=== PATIENT | male | born 1965 | race Caucasian/White ===

== ENCOUNTER 2017-12-25 10:45 | Emergency (ER) | payer BC ==
[~2017-12-25] VITALS: Ht 172.7 cm; Wt 81.4 kg
[~2017-12-25 10:45] MED LIST: BUPR-79 PO; CEPH500C PO; TRAM-10 PO
[2017-12-25 11:00] VITALS: Ht 172.7 cm; Wt 81.4 kg
[2017-12-25] MEDS ORDERED: SODIUM CHLORIDE 0.9% 1000ML 1,000 ML IV STA (11:11)
[2017-12-25] MEDS ORDERED: ONDANSETRON INJ 2 MG/ML 2 ML VIAL IV STA (11:11)
[2017-12-25] MEDS ORDERED: FAMOTIDINE 20MG/5ML IV PUSH IV STA (11:11)
[2017-12-25] MEDS ORDERED: OPTIRAY 320 IV PRN (11:30)
--- NOTE | 2017-12-25 11:37 | DIAGNOSTIC IMAGING REPORT ---
CHEST ONE VIEW PORTABLE CLINICAL HISTORY: Pain, radiating to the abdomen. COMPARISON STUDY: No previous studies for comparison. FINDINGS: The cardiac and mediastinal contours are normal. There is no evidence of focal pulmonary consolidation. There is no evidence of failure. No pleural effusions are visualized.[ No free intraperitoneal air is visualized. IMPRESSION: No active disease in the chest. Electronically signed by: Raz No M.D. 12/25/2017 11:36 AM Dictated Date/Time: 12/25/2017 11:36 AM
[2017-12-25 11:40] LABS: EOS ABS # 0.01 K/uL (0-0.5); HEMATOCRIT 48.8 % (42-52); HEMOGLOBIN 17.6 g/dL (14.0-18.0); IG# 0.06 K/uL (0.00-0.02); LYMPH % 6.4 %; LYMPH ABS # 1.35 K/uL (1.2-3.4); MEAN CELL VOLUME 89.1 fL (80-100); MEAN CORPUSCULAR HEMOGLOBIN 32.1 pg (25-34); MEAN CORPUSCULAR HGB CONC 36.1 g/dl (32-36); MEAN PLATELET VOLUME 9.9 fL (7.4-10.4); MONO % 5.5 %; MONO ABS # 1.16 K/uL (0.11-0.59); NEUT % 87.8 %; NEUT ABS # 18.61 K/uL (1.4-6.5); PLATELET COUNT 263 K/uL (130-400); RED CELL DISTRIBUTION WIDTH CV 12.7 % (11.5-14.5); WHITE BLOOD COUNT 21.19 K/uL (4.8-10.8)
[2017-12-25 12:03] LABS: ALBUMIN 4.6 gm/dl (3.4-5.0); ALKALINE PHOSPHATASE 80 U/L (45-117); ALT/SGPT 35 U/L (12-78); AST/SGOT 19 U/L (15-37); BLOOD UREA NITROGEN 19 mg/dl (7-18); CALCIUM 10.2 mg/dl (8.5-10.1); CARBON DIOXIDE 23 mmol/L (21-32); CREATININE 1.11 mg/dl (0.60-1.40); GLUCOSE 146 mg/dl (70-99); LIPASE 116 U/L (73-393); POTASSIUM 3.7 mmol/L (3.5-5.1); SODIUM 138 mmol/L (136-145)
[2017-12-25] MEDS ORDERED: LISI-461 PO (12:32)
[2017-12-25] MEDS ORDERED: FLUT1INH7 PEG (12:32)
[2017-12-25] MEDS ORDERED: VNTHFA/IN INH (12:32)
--- NOTE | 2017-12-25 13:15 | DIAGNOSTIC IMAGING REPORT ---
CT ABD/PELVIS IV CONTRAST ONLY CLINICAL HISTORY: epigastric pain, nausea, chills COMPARISON STUDY: None. TECHNIQUE: Following the IV administration of 320 mL of Optiray-320, CT scan of the abdomen and pelvis was performed from the lung bases to the proximal femurs. Images are reviewed in the axial, sagittal, and coronal planes. IV contrast was administered without complication. A dose lowering technique was utilized adhering to the principles of ALARA. CT DOSE: 390.12 mGy.cm FINDINGS: Lower chest: There are mild dependent atelectatic changes. There is a 4 mm pleural-based left lower lobe pulmonary nodule. Liver: The contrast-enhanced liver is normal in size, contour, and attenuation. There is no intrahepatic biliary ductal dilatation. The hepatic veins and portal veins are patent. Gallbladder: Unremarkable. Spleen: The spleen is mildly enlarged measuring 13 cm in length Pancreas: Unremarkable. Adrenal glands: Unremarkable. Kidneys: There is symmetric renal cortical enhancement. The kidneys are normal in size without hydronephrosis. Bowel: There are no transition zones to indicate bowel obstruction. There is colonic diverticulosis. There is no acute diverticulitis. The appendix appears normal. Borderline sigmoid wall thickening is likely secondary to a nondistended segment. Peritoneum: There is no intraperitoneal free air or abdominal ascites. Vasculature: The abdominal aorta is normal in course and caliber. Adenopathy: None. Pelvic viscera: The bladder, and pelvic viscera are unremarkable. Skeletal structures: No destructive osseous lesions are seen. IMPRESSION: 1. No evidence of bowel obstruction. No evidence of free air 2. Normal appendix 3. Diverticulosis. No evidence of acute diverticulitis 4. Mild splenomegaly Electronically signed by: Raz oN M.D. 12/25/2017 1:13 PM Dictated Date/Time: 12/25/2017 1:09 PM
[2017-12-25] MEDS ORDERED: FAMO20TA11 PO (15:10)
[2017-12-25] MEDS ORDERED: ONDA4TAB10 SL (15:10)
[2017-12-25 15:18] VITALS: BP 146/93; PULSE 96; TEMP 36.6; O2SAT 97
--- NOTE | 2017-12-25 16:25 | EMERGENCY ROOM VISIT NOTE ---
History Report prepared by Mya: Fani Hoffmann Under the Supervision of: Dr. David Ryan M.D. First contact with patient: 11:03 Chief Complaint: ILLNESS Stated Complaint: VOMITING, CHILLS History of Present Illness The patient is a 52 year old male who presents to the Emergency Room with complaints of an illness beginning 2 days banquet captain. He reports he has he has had this issue for about 4 years, but notes since 2 days banquet captain, he has felt very constipated but does not have any abdominal pain. He notes when he drinks water , he feels a "burning" in his abdomen and his white blood cell count skyrockets. He has also been sweating, having chills, and has fatigue but denies any fevers. He states he has not eaten anything since 2 days banquet captain, however he vomited today banquet captain. His last bowel movement was yesterday but it was very small. The patient reports he used to eat a lot of [place] fish and take a lot of Percocet and believed this was the cause of his episodes in the past. He takes lisinopril regularly. Source of History: patient Onset: 2 days banquet captain Position: abdomen Quality: burning (when he drinks water), other (illness) Associated Symptoms: + chills, + diaphoresis, + vomiting (today banquet captain), + fatigue, No fevers, No abdominal pain Note: Positive feeling constipated. Review of Systems See HPI for pertinent positives and negatives. A total of ten systems were reviewed and were otherwise negative. Past Medical & Surgical Medical Problems: (1) Asthma Family History FH: cancer FH: diabetes mellitus FH: heart disease High blood pressure Social History Smoking Status: Never Smoker Smokeless Tobacco Use: Yes Alcohol Use: occasionally Drug Use: marijuana Housing Status: lives with family Occupation Status: employed Current/Historical Medications Scheduled Albuterol Hfa (Ventolin Hfa), 2-4 PUFFS INH Q6H Famotidine (Pepcid), 20 MG PO BID Fluticasone Furoate-Vilanterol (Breo Ellipta 200-25 Mcg/INH), 1-2 PUFFS PEG DAILY Ondasetron Odt (Zofran Odt), 4 MG SL Q6H Miscellaneous Medications Lisinopril (Zestril), 10 MG PO Allergies Coded Allergies: No Known Allergies (Verified , 12/25/17) Physical Exam Vital Signs Date Time Temp Pulse Resp B/P (MAP) Pulse Ox O2 Delivery O2 Flow Rate FiO2 12/25/17 15:18 36.6 96 14 146/93 97 12/25/17 14:27 97 14 172/99 96 Room Air 12/25/17 13:28 80 16 165/101 95 Room Air 12/25/17 12:02 64 12/25/17 11:56 65 18 120/91 98 Room Air 12/25/17 11:00 36.6 90 18 164/104 97 Room Air Physical Exam GENERAL: Awake, alert, in no distress HENT: Bilateral conjunctival injection. Normocephalic, atraumatic. Oropharynx unremarkable. EYES: Normal conjunctiva. Sclera non-icteric. NECK: Supple. No nuchal rigidity. RESPIRATORY: Clear to auscultation. No wheezes. Normal respiratory effort. CARDIAC: Normal rate. Normal rhythm. Extremities warm and well perfused. GI: Soft, non-distended. Minimal epigastric discomfort on palpation. No rebound or guarding. No masses. RECTAL: Deferred. MUSCULOSKELETAL: Atraumatic. Chest examination reveals no tenderness. There is no CVA tenderness to palpation. LOWER EXTREMITIES: Calves are equal size bilaterally and non-tender. No edema NEURO: Normal sensorium. No sensory or motor deficits noted. No facial droop. SKIN: Warm and dry. No rash or jaundice noted. Medical Decision & Procedures ER Provider Diagnostic Interpretation: Radiology results as stated below per my review and radiologist interpretation: CHEST ONE VIEW PORTABLE CLINICAL HISTORY: Pain, radiating to the abdomen. COMPARISON STUDY: No previous studies for comparison. FINDINGS: The cardiac and mediastinal contours are normal. There is no evidence of focal pulmonary consolidation. There is no evidence of failure. No pleural effusions are visualized.[ No free intraperitoneal air is visualized. IMPRESSION: No active disease in the chest. Electronically signed by: Raz No M.D. 12/25/2017 11:[address] ABD/PELVIS IV CONTRAST ONLY CLINICAL HISTORY: epigastric pain, nausea, chills COMPARISON STUDY: None. TECHNIQUE: Following the IV administration of 320 mL of Optiray-320, CT scan of the abdomen and pelvis was performed from the lung bases to the proximal femurs. Images are reviewed in the axial, sagittal, and coronal planes. IV contrast was administered without complication. A dose lowering technique was utilized adhering to the principles of ALARA. CT DOSE: 390.12 mGy.cm FINDINGS: Lower chest: There are mild dependent atelectatic changes. There is a 4 mm pleural-based left lower lobe pulmonary nodule. Liver: The contrast-enhanced liver is normal in size, contour, and attenuation. There is no intrahepatic biliary ductal dilatation. The hepatic veins and portal veins are patent. Gallbladder: Unremarkable. Spleen: The spleen is mildly enlarged measuring 13 cm in length Pancreas: Unremarkable. Adrenal glands: Unremarkable. Kidneys: There is symmetric renal cortical enhancement. The kidneys are normal in size without hydronephrosis. Bowel: There are no transition zones to indicate bowel obstruction. There is colonic diverticulosis. There is no acute diverticulitis. The appendix appears normal. Borderline sigmoid wall thickening is likely secondary to a nondistended segment. Peritoneum: There is no intraperitoneal free air or abdominal ascites. Vasculature: The abdominal aorta is normal in course and caliber. Adenopathy: None. Pelvic viscera: The bladder, and pelvic viscera are unremarkable. Skeletal structures: No destructive osseous lesions are seen. IMPRESSION: 1. No evidence of bowel obstruction. No evidence of free air 2. Normal appendix 3. Diverticulosis. No evidence of acute diverticulitis 4. Mild splenomegaly Electronically signed by: Raz No M.D. 12/25/2017 1:13 PM Laboratory Results 12/25/17 11:30 Red Blood Count 5.48, Mean Corpuscular Volume 89.1, Mean Corpuscular Hemoglobin 32.1, Mean Corpuscular Hemoglobin Concent 36.1, Mean Platelet Volume 9.9, Neutrophils (%) (Auto) 87.8, Lymphocytes (%) (Auto) 6.4, Monocytes (%) (Auto) 5.5, Eosinophils (%) (Auto) 0.0, Basophils (%) (Auto) 0.0, Neutrophils # (Auto) 18.61, Lymphocytes # (Auto) 1.35, Monocytes # (Auto) 1.16, Eosinophils # (Auto) 0.01, Basophils # (Auto) 0.00 12/25/17 11:30 Test 12/25/17 11:30 White Blood Count 21.19 K/uL (4.8-10.8) Red Blood Count 5.48 M/uL (4.7-6.1) Hemoglobin 17.6 g/dL (14.0-18.0) Hematocrit 48.8 % (42-52) Mean Corpuscular Volume 89.1 fL (80-100) Mean Corpuscular Hemoglobin 32.1 pg (25-34) Mean Corpuscular Hemoglobin Concent 36.1 g/dl (32-36) Platelet Count 263 K/uL (130-400) Mean Platelet Volume 9.9 fL (7.4-10.4) Neutrophils (%) (Auto) 87.8 % Lymphocytes (%) (Auto) 6.4 % Monocytes (%) (Auto) 5.5 % Eosinophils (%) (Auto) 0.0 % Basophils (%) (Auto) 0.0 % Neutrophils # (Auto) 18.61 K/uL (1.4-6.5) Lymphocytes # (Auto) 1.35 K/uL (1.2-3.4) Monocytes # (Auto) 1.16 K/uL (0.11-0.59) Eosinophils # (Auto) 0.01 K/uL (0-0.5) Basophils # (Auto) 0.00 K/uL (0-0.2) RDW Standard Deviation 41.0 fL (36.4-46.3) RDW Coefficient of Variation 12.7 % (11.5-14.5) Immature Granulocyte % (Auto) 0.3 % Immature Granulocyte # (Auto) 0.06 K/uL (0.00-0.02) Anion Gap 13.0 mmol/L (3-11) Est Creatinine Clear Calc Drug Dose 77.0 ml/min Estimated GFR () 89.3 Estimated GFR (Non- 77.0 BUN/Creatinine Ratio 16.8 (10-20) Calcium Level 10.2 mg/dl (8.5-10.1) Total Bilirubin 0.9 mg/dl (0.2-1) Direct Bilirubin 0.3 mg/dl (0-0.2) Aspartate Amino Transf (AST/SGOT) 19 U/L (15-37) Alanine Aminotransferase (ALT/SGPT) 35 U/L (12-78) Alkaline Phosphatase 80 U/L (45-117) Troponin I < 0.015 ng/ml (0-0.045) Total Protein 9.0 gm/dl (6.4-8.2) Albumin 4.6 gm/dl (3.4-5.0) Lipase 116 U/L (73-393) Laboratory results reviewed by me Medications Administered Medications (Trade) Dose Ordered Sig/Gabriella Route Start Time Stop Time Status Last Admin Dose Admin Sodium Chloride 1,000 ml @ 999 mls/hr Q1H1M STAT IV 12/25/17 11:11 12/25/17 12:11 DC 12/25/17 11:49 999 MLS/HR Ondansetron HCl (Zofran Inj) 4 mg NOW STAT IV 12/25/17 11:11 12/25/17 11:18 DC 12/25/17 11:46 4 MG Famotidine (Pepcid 20mg Iv Push) 20 mg ONE STAT IV 12/25/17 11:11 12/25/17 11:18 DC 12/25/17 11:48 20 MG ECG Per My Interpretation Indication: abdominal pain Rate (beats per minute): 90 Rhythm: normal sinus Findings: T-wave inversion (lead III ), other (normal intervals, no ST segment elevation) Comparison ECG Date: 08/14/08 Change: TWI in lead III new compared to prior ED Course 1105: The patient was evaluated in room C4. A complete history and physical exam was performed. 1111: Ordered Famotidine 20 mg IV, Zofran Inj 4 mg IV, Sodium Chloride 1000 ml @ 999 mls/hr IV 1500: I reevaluated the patient. Discussed results and discharge instructions: He verbalized understanding and agreement. The patient is ready for discharge. Medical Decision Triage Nursing notes reviewed. Differential diagnosis: Etiologies such as appendicitis, diverticulitis, PUD, biliary pathology, UTI, pancreatitis, obstruction, mesenteric ischemia, aortic pathology, infections, inflammatory bowel disease, renal colic, as well as others were entertained. Patient states a long history of recurrent episodes of epigastric pain and nausea in the past decade. States last occurred about 2 years ago. Several days now symptoms and unable tolerate oral. No significant pain now but he states any times he eats or drinks anything he gets a burning pain in the stomach. Vomited just prior to arrival. No fevers. No trauma. Does endorse regular marijuana use. States prior EGDs and colonoscopies with minimal findings. Questionably some diverticulitis in the past. States he feels dehydrated. Given fluid hydration Pepcid and antiemetic control. Benign abdomen but given his history a CT the abdomen pelvis was completed. Leukocytosis of 21 is noted. Chest x-ray unremarkable. No evidence of acute kidney injury. Negative troponin. Negative lipase. LFTs unimpressive. CT shows no acute intra-abdominal process or colitis. Unsure of the exact etiology of his leukocytosis as he does not appear acutely infected. This could possibly be a stress response. With his marijuana use wonder if there may be a component of hyperemesis and cyclic vomiting from this. Able to tolerate oral intake after dose of Zofran and Pepcid just feels a bit tired. At this point do not see clear indication for antibiotics. This could be a viral gastroenteritis as well. Will start on Zofran Pepcid going forward. Recommend follow-up within the next 2 weeks if not improving with GI. Discussed return criteria with him and his feel comfortable with discharge home. Medication Reconcilliation Current Medication List: was personally reviewed by me Blood Pressure Screening Patient's blood pressure: Elevated blood pressure Blood pressure disposition: Referred to PCP Impression Primary Impression: Gastroenteritis Scribe Attestation The scribe's documentation has been prepared under my direction and personally reviewed by me in its entirety. I confirm that the note above accurately reflects all work, treatment, procedures, and medical decision making performed by me. Departure Information Dispostion Home / Self-Care Prescriptions Famotidine (Pepcid) 20 Mg Tab 20 MG PO BID for 14 Days, #28 TAB Prov: David Ryan M.D. 12/25/17 Ondasetron Odt (ZOFRAN ODT) 4 Mg Tab 4 MG SL Q6H for Nausea, #18 TAB Prov: David Ryan M.D. 12/25/17 Referrals Addison Peter M.D. (PCP) Forms HOME CARE DOCUMENTATION FORM, IMPORTANT VISIT INFORMATION, WORK / SCHOOL INSTRUCTIONS Patient Instructions My [facility] Additional Instructions Continue to maintain hydration which is of utmost importance. Continue bowel regimen to have regular bowel movements. Utilize the Zofran if you have nausea. Please take the Pepcid daily. If you have significant fevers, abdominal pain, chest pain, or other symptoms please return here for reevaluation. Otherwise I recommend outpatient follow-up with your regular doctor in the next 5 days and if persisting GI follow-up in the next several weeks.
== END 2017-12-25 15:19 | disposition home or self-care (01) ==
LOC: C.EDB 10:47 → C.EDC 15:19
DX: K52.9 Noninfective gastroenteritis and colitis, unspecified (principal); D72.829 Elevated white blood cell count, unspecified; R03.0 Elevated blood-pressure reading, without diagnosis of hypertension; J45.909 Unspecified asthma, uncomplicated; Z79.899 Other long term (current) drug therapy

== ENCOUNTER 2017-12-27 07:55 | Emergency (ER) | payer BC ==
[~2017-12-27] VITALS: Ht 172.7 cm; Wt 83.1 kg
[~2017-12-27 07:55] MED LIST changes: -BUPR-79 PO; -CEPH500C PO; +FAMO20TA11 PO; +FLUT1INH7 PEG; +LISI-461 PO; +ONDA4TAB10 SL; -TRAM-10 PO; +VNTHFA/IN INH
[2017-12-27 08:00] VITALS: TEMP 36.8; Ht 172.7 cm; Wt 83.1 kg
[2017-12-27] MEDS ORDERED: SODIUM CHLORIDE 0.9% 1000ML 1,000 ML IV STA ×2 (08:22→11:05)
[2017-12-27] MEDS ORDERED: ONDANSETRON INJ 2 MG/ML 2 ML VIAL IV STA ×2 (08:22→10:52)
[2017-12-27] MEDS ORDERED: MoRPHine SULFATE 4 MG/ML 1 ML CARP\\VIAL IV STA (08:22)
[2017-12-27] MEDS ORDERED: KETOROLAC TROMETHAMINE 30 MG/ML VIAL IV STA (08:22)
[2017-12-27] MEDS ORDERED: FLUT1INH7 INH (08:29)
[2017-12-27] MEDS ORDERED: LISI10TA PO (08:29)
[2017-12-27 09:02] LABS: BASO % 0.1 %; BASO ABS # 0.02 K/uL (0-0.2); EOS % 0.8 %; EOS ABS # 0.12 K/uL (0-0.5); HEMOGLOBIN 17.2 g/dL (14.0-18.0); IG# 0.05 K/uL (0.00-0.02); LYMPH ABS # 1.45 K/uL (1.2-3.4); MEAN CELL VOLUME 88.8 fL (80-100); MEAN CORPUSCULAR HEMOGLOBIN 32.5 pg (25-34); MEAN CORPUSCULAR HGB CONC 36.6 g/dl (32-36); MEAN PLATELET VOLUME 9.5 fL (7.4-10.4); MONO % 7.4 %; MONO ABS # 1.07 K/uL (0.11-0.59); NEUT % 81.4 %; NEUT ABS # 11.73 K/uL (1.4-6.5); PLATELET COUNT 214 K/uL (130-400); RED CELL DISTRIBUTION WIDTH CV 12.5 % (11.5-14.5); RED CELL DISTRIBUTION WIDTH SD 40.4 fL (36.4-46.3); WHITE BLOOD COUNT 14.44 K/uL (4.8-10.8)
[2017-12-27 09:21] LABS: CALCIUM 9.1 mg/dl (8.5-10.1); CREATININE 1.13 mg/dl (0.60-1.40); TOTAL PROTEIN 7.7 gm/dl (6.4-8.2)
--- NOTE | 2017-12-27 09:31 | DIAGNOSTIC IMAGING REPORT ---
LUMBAR SPINE CT CT DOSE: 626.43 mGy.cm HISTORY: Low back pain RADIATING TO TESTICLES TECHNIQUE: Multiaxial CT images of the lumbar spine were performed and reformatted in the sagittal and coronal plane without the use of contrast. A dose lowering technique was utilized adhering to the principles of ALARA. COMPARISON: None. FINDINGS: No fractures. No subluxation. Paraspinal soft tissues are unremarkable. Mild disc space narrowing at L5-S1. Mild facet degenerative changes at L4-L5 and L5-S1. Mild central canal narrowing at L4-L5 due to a broad-based posterior disc bulge and ligamentum and facet hypertrophy. This is also mild right and moderate left neural foraminal narrowing at this level. Broad-based posterior disc bulge at L5-S1 without significant central canal narrowing. There is mild bilateral neural foraminal narrowing at this level. IMPRESSION: 1. No fracture or subluxation within the lumbar spine. 2. Mild degenerative changes within the lower lumbar spine as described above. Electronically signed by: Alban Sorenson M.D. 12/27/2017 9:29 AM Dictated Date/Time: 12/27/2017 9:23 AM
--- NOTE | 2017-12-27 09:42 | DIAGNOSTIC IMAGING REPORT ---
ABDOMEN AND PELVIS CT WITHOUT CONTRAST CT DOSE: HISTORY: Nausea. Vomiting. Low back pain RADIATING TO TESTICLES TECHNIQUE: Multiaxial CT images of the abdomen and pelvis were performed without contrast. A dose lowering technique was utilized adhering to the principles of ALARA. COMPARISON STUDY: Abdomen and pelvis CT 12/25/2017. FINDINGS: Mild interstitial thickening at the lung bases. Stable 5 mm subpleural nodule within the left lower lobe on image 7. No pneumoperitoneum. No pneumatosis. No fractures within the visualized osseous structures. The spleen remains top normal in size measuring 12.5 cm in length. The unenhanced liver, gallbladder, pancreas, adrenal glands, and kidneys are unremarkable. No renal or ureteral calculi. No hydronephrosis. Bladder is not well-distended but appears unremarkable. No retroperitoneal lymphadenopathy. Suboptimal evaluation for bowel pathology due to the lack of intravenous and oral contrast. However, there is no definite bowel wall thickening or obstruction. Colonic diverticulosis. Normal appendix. IMPRESSION: 1. No renal or ureteral stones. No hydronephrosis. 2. No definite bowel wall thickening or obstruction. 3. Normal appendix. 4. Colonic diverticulosis. Electronically signed by: Alban Sorenson M.D. 12/27/2017 9:41 AM Dictated Date/Time: 12/27/2017 9:32 AM
[2017-12-27 11:35] VITALS: O2SAT 95
[2017-12-27] MEDS ORDERED: ALBUTEROL HFA 8 GM INHALER INH STA (13:29)
[2017-12-27] MEDS ORDERED: OXYC-90 PO (13:37)
[2017-12-27 13:46] VITALS: BP 183/89; PULSE 45; O2SAT 98
[2017-12-27] MEDS ORDERED: OXYC-57 PO (13:54)
--- NOTE | 2017-12-27 18:27 | EMERGENCY ROOM VISIT NOTE ---
History First contact with patient: 08:07 Chief Complaint: BACK PAIN Stated Complaint: NAUSEA,COLD SWEATS,SEVERE LWR BACK PAIN,VOMITING History of Present Illness The patient is a 52 year old male who presents to the Emergency Room with complaints of persistent lower back pain radiating around to his testicular region. The patient reports that he was here on Wednesday with very similar symptoms. He was discharged with prescriptions for Pepcid and Zofran. The patient reports that he did not have any pain on Wednesday, then started to develop pain again yesterday. Overnight he had no problems, but woke up this morning with severe pain rated a 10 out of 10. The patient reports that the pain comes and goes. He reports nausea and vomiting. He has not had any fevers or chills. The patient reports that he was not able to provide a urine sample on Wednesday. He reports that his urine was really dark red and foul- smelling on Wednesday. He denies any prior history of UTI, pyelonephritis or kidney stones. He denies any prior abdominal surgeries. His pain is worsened with bending over. 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 On my exam, the patient rates his discomfort a 7 out of 10. Review of Systems HEENT: Denies dizziness, visual problems, hearing loss, tinnitus. Denies difficulty swallowing or oral lesions. PULMONARY: Denies cough, shortness of breath, sputum production or hemoptysis. CARDIOVASCULAR: Denies chest pain, palpitations, dyspnea on exertion, orthopnea or peripheral edema. GASTROINTESTINAL: Denies diarrhea, constipation, or significant abdominal pain. Otherwise see HPI. GENITOURINARY: Denies dysuria, frequency, urgency or nocturia. NEUROLOGIC: Denies history of epilepsy, CVA, TIA or chronic headaches. MUSCULOSKELETAL: Denies history of joint tenderness/swelling. SKIN: Denies rashes or lesions. PSYCHIATRIC: Denies history of depression or mental illness. ENDOCRINE: Denies history of diabetes or thyroid disorders. Past Medical/Surgical History Medical Problems: (1) Asthma Family History FH: cancer FH: diabetes mellitus FH: heart disease High blood pressure Social History Smoking Status: Never Smoker Alcohol Use: occasionally Drug Use: marijuana Housing Status: lives with family Occupation Status: employed Current/Historical Medications Scheduled Albuterol Hfa (Ventolin Hfa), 2-4 PUFFS INH Q6H Fluticasone Furoate-Vilanterol (Breo Ellipta 200-25 Mcg/INH), 1-2 PUFFS INH DAILY Lisinopril (Prinivil), 10 MG PO DAILY Scheduled PRN Oxycodone/Acetaminophen 5MG/325MG (Percocet 5MG/325MG), 1 TABLET PO Q4H PRN for Pain Physical Exam Vital Signs Date Time Temp Pulse Resp B/P (MAP) Pulse Ox O2 Delivery O2 Flow Rate FiO2 12/27/17 13:46 45 15 183/89 98 Room Air 12/27/17 12:50 46 18 95 12/27/17 12:45 44 21 206/107 94 12/27/17 12:40 43 17 96 12/27/17 12:35 49 18 95 12/27/17 12:30 45 14 176/117 12/27/17 12:25 45 12 98 12/27/17 12:20 48 17 95 12/27/17 12:15 48 17 207/106 94 12/27/17 12:10 44 20 94 12/27/17 12:05 41 12/27/17 12:05 41 17 95 12/27/17 12:01 181/115 12/27/17 12:00 47 17 94 12/27/17 11:55 43 15 95 12/27/17 11:50 43 13 95 12/27/17 11:45 47 18 157/105 100 12/27/17 11:40 49 10 96 12/27/17 11:35 43 12 98 12/27/17 11:35 95 Room Air 12/27/17 11:30 63 17 186/109 12/27/17 11:26 179/109 12/27/17 10:35 46 16 173/97 100 12/27/17 08:59 47 20 176/96 95 Room Air 12/27/17 08:00 36.8 61 28 173/95 99 Room Air Physical Exam CONSTITUTIONAL: Healthy and well nourished. Alert and oriented X 3 with positive affect. Patient is trembling and crying on my exam. He appears in moderate discomfort on initial exam, but at the conclusion of my evaluation, the patient did not appear in any acute distress. HEENT: Normocephalic, atraumatic. Pupils equal, round and reactive. No scleral icterus or conjunctival injection/pallor. NECK: Full active range of motion without discomfort. No JVD or carotid bruits. RESPIRATORY: Clear to auscultation bilaterally with no wheezing, crackles, rhonchi or stridor. CARDIOVASCULAR: Regular rate and rhythm with no murmurs, rubs or gallops. GASTROINTESTINAL: Bowel sounds present in all quadrants. Abdomen is soft and nontender to palpation. No suprapubic tenderness to palpation. Negative Crenshaw sign. Negative McBurney's point tenderness. Negative CVA tenderness. MUSCULOSKELETAL: Full range of motion of all joints without discomfort. INTEGUMENTARY: No rash or other significant dermatologic conditions noted. HEMATOLOGIC: No ecchymosis or petechiae. NEUROLOGIC: No focal neurologic deficits noted. Medical Decision & Procedures ER Provider Diagnostic Interpretation: Noncontrast CT of the lumbar spine does not show any acute fractures or other concerning findings. Radiologist report is as follows: LUMBAR SPINE CT CT DOSE: 626.43 mGy.cm HISTORY: Low back pain RADIATING TO TESTICLES TECHNIQUE: Multiaxial CT images of the lumbar spine were performed and reformatted in the sagittal and coronal plane without the use of contrast. A dose lowering technique was utilized adhering to the principles of ALARA. COMPARISON: None. FINDINGS: No fractures. No subluxation. Paraspinal soft tissues are unremarkable. Mild disc space narrowing at L5-S1. Mild facet degenerative changes at L4-L5 and L5-S1. Mild central canal narrowing at L4-L5 due to a broad-based posterior disc bulge and ligamentum and facet hypertrophy. This is also mild right and moderate left neural foraminal narrowing at this level. Broad-based posterior disc bulge at L5-S1 without significant central canal narrowing. There is mild bilateral neural foraminal narrowing at this level. IMPRESSION: 1. No fracture or subluxation within the lumbar spine. 2. Mild degenerative changes within the lower lumbar spine as described above. Noncontrast CT of the abdomen and pelvis does not show any ureteral calculi, hydroureteronephrosis or other acute intra-abdominal findings. Radiologist report is as follows: ABDOMEN AND PELVIS CT WITHOUT CONTRAST CT DOSE: HISTORY: Nausea. Vomiting. Low back pain RADIATING TO TESTICLES TECHNIQUE: Multiaxial CT images of the abdomen and pelvis were performed without contrast. A dose lowering technique was utilized adhering to the principles of ALARA. COMPARISON STUDY: Abdomen and pelvis CT 12/25/2017. FINDINGS: Mild interstitial thickening at the lung bases. Stable 5 mm subpleural nodule within the left lower lobe on image 7. No pneumoperitoneum. No pneumatosis. No fractures within the visualized osseous structures. The spleen remains top normal in size measuring 12.5 cm in length. The unenhanced liver, gallbladder, pancreas, adrenal glands, and kidneys are unremarkable. No renal or ureteral calculi. No hydronephrosis. Bladder is not well-distended but appears unremarkable. No retroperitoneal lymphadenopathy. Suboptimal evaluation for bowel pathology due to the lack of intravenous and oral contrast. However, there is no definite bowel wall thickening or obstruction. Colonic diverticulosis. Normal appendix. IMPRESSION: 1. No renal or ureteral stones. No hydronephrosis. 2. No definite bowel wall thickening or obstruction. 3. Normal appendix. 4. Colonic diverticulosis. Laboratory Results 12/27/17 08:50 Red Blood Count 5.29, Mean Corpuscular Volume 88.8, Mean Corpuscular Hemoglobin 32.5, Mean Corpuscular Hemoglobin Concent 36.6, Mean Platelet Volume 9.5, Neutrophils (%) (Auto) 81.4, Lymphocytes (%) (Auto) 10.0, Monocytes (%) (Auto) 7.4, Eosinophils (%) (Auto) 0.8, Basophils (%) (Auto) 0.1, Neutrophils # (Auto) 11.73, Lymphocytes # (Auto) 1.45, Monocytes # (Auto) 1.07, Eosinophils # (Auto) 0.12, Basophils # (Auto) 0.02 12/27/17 08:50 Test 12/27/17 08:25 12/27/17 08:50 12/27/17 11:29 Urine Color YELLOW Urine Appearance CLEAR (CLEAR) Urine pH 7.0 (4.5-7.5) Urine Specific [place] 1.021 (1.000-1.030) Urine Protein NEG (NEG) Urine Glucose (UA) NEG (NEG) Urine Ketones NEG (NEG) Urine Occult Blood TRACE (NEG) Urine Nitrite NEG (NEG) Urine Bilirubin NEG (NEG) Urine Urobilinogen NEG (NEG) Urine Leukocyte Esterase NEG (NEG) Urine WBC (Auto) 1-5 /hpf (0-5) Urine RBC (Auto) 0-4 /hpf (0-4) Urine Hyaline Casts (Auto) 1-5 /lpf (0-5) Urine Epithelial Cells (Auto) 10-20 /lpf (0-5) Urine Bacteria (Auto) NEG (NEG) White Blood Count 14.44 K/uL (4.8-10.8) Red Blood Count 5.29 M/uL (4.7-6.1) Hemoglobin 17.2 g/dL (14.0-18.0) Hematocrit 47.0 % (42-52) Mean Corpuscular Volume 88.8 fL (80-100) Mean Corpuscular Hemoglobin 32.5 pg (25-34) Mean Corpuscular Hemoglobin Concent 36.6 g/dl (32-36) Platelet Count 214 K/uL (130-400) Mean Platelet Volume 9.5 fL (7.4-10.4) Neutrophils (%) (Auto) 81.4 % Lymphocytes (%) (Auto) 10.0 % Monocytes (%) (Auto) 7.4 % Eosinophils (%) (Auto) 0.8 % Basophils (%) (Auto) 0.1 % Neutrophils # (Auto) 11.73 K/uL (1.4-6.5) Lymphocytes # (Auto) 1.45 K/uL (1.2-3.4) Monocytes # (Auto) 1.07 K/uL (0.11-0.59) Eosinophils # (Auto) 0.12 K/uL (0-0.5) Basophils # (Auto) 0.02 K/uL (0-0.2) RDW Standard Deviation 40.4 fL (36.4-46.3) RDW Coefficient of Variation 12.5 % (11.5-14.5) Immature Granulocyte % (Auto) 0.3 % Immature Granulocyte # (Auto) 0.05 K/uL (0.00-0.02) Erythrocyte Sedimentation Rate 9 mm/hr (0-14) Anion Gap 10.0 mmol/L (3-11) Est Creatinine Clear Calc Drug Dose 82.2 ml/min Estimated GFR () 87.4 Estimated GFR (Non- 75.4 BUN/Creatinine Ratio 15.3 (10-20) Calcium Level 9.1 mg/dl (8.5-10.1) Total Bilirubin 0.6 mg/dl (0.2-1) Aspartate Amino Transf (AST/SGOT) 26 U/L (15-37) Alanine Aminotransferase (ALT/SGPT) 34 U/L (12-78) Alkaline Phosphatase 75 U/L (45-117) C-Reactive Protein 0.56 mg/dl (0-0.29) Total Protein 7.7 gm/dl (6.4-8.2) Albumin 4.0 gm/dl (3.4-5.0) Globulin 3.7 gm/dl (2.5-4.0) Albumin/Globulin Ratio 1.1 (0.9-2) Lipase 162 U/L (73-393) Thyroid Stimulating Hormone (TSH) 3.810 uIu/ml (0.300-4.500) Lyme Disease IgG Antibody NEG (NEG) Lyme Disease IgM Antibody NEG (NEG) Bedside Glucose 132 mg/dl (70-99) The above labs were reviewed. The patient's white count is improved today with a white count of 14.44. Patient still has left shift and bandemia. Sed rate is normal. CRP is elevated. Lyme screen is also negative. Medications Administered Medications (Trade) Dose Ordered Sig/Gabriella Route Start Time Stop Time Status Last Admin Dose Admin Sodium Chloride 1,000 ml @ 999 mls/hr Q1H1M STAT IV 12/27/17 08:22 12/27/17 09:22 DC 12/27/17 08:32 999 MLS/HR Ketorolac Tromethamine (Toradol Inj) 30 mg NOW STAT IV 12/27/17 08:22 12/27/17 08:24 DC 12/27/17 08:37 30 MG Morphine Sulfate (MoRPHine SULFATE INJ) 4 mg NOW STAT IV 12/27/17 08:22 12/27/17 08:24 DC 12/27/17 08:38 4 MG Ondansetron HCl (Zofran Inj) 4 mg NOW STAT IV 12/27/17 08:22 12/27/17 08:24 DC 12/27/17 08:38 4 MG Ondansetron HCl (Zofran Inj) 4 mg NOW STAT IV 12/27/17 10:52 12/27/17 10:54 DC 12/27/17 11:25 4 MG Sodium Chloride 1,000 ml @ 999 mls/hr Q1H1M STAT IV 12/27/17 11:05 12/27/17 12:05 DC 12/27/17 11:26 999 MLS/HR Albuterol (Ventolin Hfa Inhaler) 2 puffs ONE STAT INH 12/27/17 13:29 12/27/17 13:30 DC 12/27/17 13:49 2 PUFFS Procedure 1. IV hydration: The patient was administered a total normal saline of 1.5 L bolus 2. IV medications: Morphine 4 mg and Zofran 4 mg IVP. The patient was eventually administered an additional morphine 4 mg and Zofran 4 mg IVP. ED Course Patient history and physical exam were performed. Nurse's notes were reviewed. Vital signs were reviewed, showing an elevated blood pressure 173/95. Patient is afebrile and not tachycardic. I also reviewed documentation from the patient's visit to the emergency department 2 days ago. He had a white count of over 21,000, otherwise remaining labs were normal. He also had a CT of the abdomen and pelvis with IV contrast that was also unremarkable. IV access was established, and labs were drawn. The patient was hydrated with normal saline, and was administered IV medications as discussed in the previous Procedure section. Initial urine dip did show hematuria without signs of infection. At this point, I suggested repeat CT of the abdomen and pelvis, as well as CT of the lumbar spine to rule out acute musculoskeletal etiology such as fracture or other lytic lesions. The CT studies were normal. Upon reevaluation, the patient reported persistent pain and nausea. He was administered IV morphine and Zofran. Findings were discussed with the patient and ; the , however, was concerned because there was no definitive answer explaining the patient's symptoms. I did discuss several different possibilities, including radiopaque ureteral stones. The patient's clinical exam does show a positive straight leg raise bilaterally, suggestive of lumbar radiculitis. The patient then became severely diaphoretic. At this point, an ECG was performed showing a sinus bradycardia 44 bpm; however, review of prior available vital signs shows that the patient has had bradycardia in the past. I did discuss the case further with Dr. Salas, ED attending physician, who also evaluated the patient. Because the patient has had recurrent similar symptoms in the past, he suggested outpatient follow-up. I also explained that the patient really does not meet any criteria at this point for observation or admission. The patient reports that his blood pressure was likely elevated because he was unable to keep his lisinopril blood pressure medications down this morning. The patient did report improvement of his pain and nausea, denying any symptoms at the time of discharge. He was able to trial ambulate. I did suggest that he follow-up with his PCP for further reevaluation and management. He is welcome to return to the emergency department for any worsening symptoms. The patient will be provided a prescription for Percocet. He already received a prescription for Zofran ODT from his ED visit 2 days ago. The patient and are happy with plan of care, and voiced understanding of all discharge instructions. Medical Decision See previous section. It is noted that the patient's pain was intermittent, which was suggestive of renal colic. He does have hematuria, however there are no obvious radiopaque ureteral calculi noted. He also does not have any evidence for obstructive uropathy on CT scan. CT scan of the lumbar spine also does not show any acute fractures; I do not feel that the patient has had any recent injury to suggest disc injury. Although the patient has leukocytosis, the patient does not give any history to suggest spinal abscess. Lyme screen is negative. His clinical exam and history are not consistent with cauda equina syndrome. Attending physician does not feel that further advanced imaging is warranted at this time. [place] Drug Monitoring Program Search Results: patient reviewed within database, no issues identified Medication Reconcilliation Current Medication List: was personally reviewed by me Blood Pressure Screening Patient's blood pressure: Elevated blood pressure Blood pressure disposition: Elevated BP felt to be situational Impression Primary Impression: Lower back pain Additional Impression: Elevated blood pressure reading with diagnosis of hypertension Departure Information Prescriptions Oxycodone/Acetaminophen 5MG/325MG (PERCOCET 5MG/325MG) Tab 1 TABLET PO Q4H Y for Pain, #15 TAB PAIN Prov: Yunior Ku PA 12/27/17 Referrals No Doctor, Assigned (PCP) Patient Instructions My [facility] Problem Qualifiers Primary Impression: Lower back pain Chronicity: acute Back pain laterality: bilateral Sciatica presence: without sciatica Qualified Codes: M54.5 - Low back pain
== END 2017-12-27 14:00 | disposition home or self-care (01) ==
LOC: C.EDB 07:55 → C.EDA 14:00
DX: M54.5 Low back pain (principal); I10 Essential (primary) hypertension; J45.909 Unspecified asthma, uncomplicated; Z80.9 Family history of malignant neoplasm, unspecified; Z83.3 Family history of diabetes mellitus; Z82.49 Family history of ischemic heart disease and other diseases of the circulatory system; F12.90 Cannabis use, unspecified, uncomplicated; Z79.899 Other long term (current) drug therapy

== ENCOUNTER 2020-10-23 13:33 | Observation (INO) ==
[2020-10-23] MEDS ORDERED: SODIUM CHLORIDE 0.9% 1000ML 1,000 ML IV ONE (14:26)
[2020-10-23] MEDS ORDERED: SODIUM CHLORIDE 0.9% 1000ML 1,000 ML IV STA (14:26)
[2020-10-23] MEDS ORDERED: METOCLOPRAMIDE HCL INJ 5 MG/ML 2 ML VIAL IV STA (14:32)
[2020-10-23] MEDS ORDERED: diphenhydrAMINE 50 MG/ML VIAL IV STA (14:32)
--- NOTE | 2020-10-23 14:32 | Emergency Department Note ---
Impression & Plan Vomiting ED Provider Note INFORMANT: Patient ED PROVIDER(S): Anoop Eddy MD CHIEF COMPLAINT: Nausea vomiting PLAN: Disposition: Admitted Condition: Good Outpatient prescription management: none Referral: None MEDICAL DECISION MAKING: Patient presented back to emergency apartment noting continued nausea and vomiting throughout the day today. He had an IV established. Blood work was obtained. He was given normal saline hydration and 8 mg of Zofran. He was reassessed and was still somewhat nauseated. He was given Reglan and Benadryl IV. He did feel better with this. His white count was elevated but was improved compared to yesterday. The patient's KUB did not show any significant problems. LFTs and lipase were unremarkable as well. Chemistry panel was unremarkable. He and I addressed the situation. He does note that he uses significant amounts of marijuana. This may be related to a hyperemesis type syndrome. The patient and I discussed this. He is still nauseated and cannot take any solids by mouth. Because of this he is unable to take his blood pressu re medication. Further management in the hospital was deemed appropriate. I gave my usual and customary discussion regarding this issue. Consultation was [facility] with the [facility]. He was evaluated by the team in the ER and admitted for further management. Triage Nursing notes reviewed and agree them. Vital Signs: reviewed and remarkable for hypertension Differential diagnosis: Etiologies such as gastroenteritis, food borne illness, infections, appendicitis, diverticulitis, inflammatory bowel disease, GI bleed, biliary pathology, as well as others were entertained. Diagnostics interpreted by me: ECG: none Cardiac Monitoring:Cardiac monitoring ordered by me: The patient was placed on continuous cardiac monitoring and observed. It revealed a normal sinus rhythm at 72 beats per minute without ectopy or evidence of dysrhythmia. Imaging studies: KUB negative for acute pathology. HPI: The patient is a 55 year old male who presents to the Emergency Room with complaints of vomiting. This started two days ago and is worsening. The patient also notes the following associated symptoms, nausea. Seen in ED last night and given zofran. Had a high white count. The patient has tried the zofran for relieving factors. Current pain is rated as 0/10. Pt denies LOC, headache, fevers, chills, diaphoresis, visual changes, neck pain, chest pain, breathing difficulties, abdominal pain, back pain, melena, hematochezia, urinary symptoms, numbness, weakness, lymphadenopathy, rash, or other complaints. ROS: See above HPI for pertinent positives & negatives. A total of 10 systems reviewed and were otherwise negative. PAST MEDICAL HISTORY:See Below , diverticulitis, HTN PAST SURGICAL HISTORY:See Below, FAMILY HISTORY:See Below SOCIAL HISTORY:See Below, . marijuana use, heavy HOME MEDICATIONS:See Below ALLERGIES:See Below VITALS:See Below PHYSICAL EXAMINATION: GENERAL: Awake, alert, uncomfortable-appearing, in no distress HENT: Normocephalic, atraumatic. Oropharynx unremarkable. EYES: Normal conjunctiva. Sclera non-icteric. NECK: Inspection normal. Non-tender. Supple. No nuchal rigidity. FROM. No masses. RESPIRATORY: Clear to auscultation. No wheezes. No rales. Normal respiratory effort. CARDIAC: Normal rate. Normal rhythm. No murmurs. No rubs. Extremities warm and well perfused. Pulses equal. No JVD. GI: Soft, non-distended. No tenderness to palpation. No rebound or guarding. No masses. RECTAL: Deferred. MUSCULOSKELETAL: Atraumatic. Chest examination reveals no tenderness. The back is symmetrical on inspection without obvious abnormality. There is no CVA tenderness to palpation. No joint edema. LOWER EXTREMITIES: Calves are equal size bilaterally and non-tender. No edema. No discoloration. NEURO: Normal sensorium. No sensory or motor deficits noted. SKIN: No rash or jaundice noted. Anoop Eddy MD Past Med/Surg History Medical History (Updated 10/23/20 @ 14:28 by Anoop Eddy MD) Asthma Hyperlipidemia Hypertension Surgical History No significant past surgical history Social History Smoking Status: Former smoker Second Hand Exposure: Yes; Do You Dip or Chew Tobacco: No; Tobacco Cessation Education Requested by Patient: No Hx Alcohol Use: No Hx Substance Use: Yes Last Used Substance: Hours (ago) Preferred Language: Slovenian Communication Ability: Effective Radiochemical Technician Required: No Beliefs That Will Affect Care: None marital status: Current Living Situation: Spouse Current Living Situation Comment: Lives with spouse current occupational status: employed Other Information That Helps Us Care for You: No Feels Safe at Home: Yes Safety Concerns: Feels Safe At This Time Allergies Allergies Allergy/AdvReac Type Severity Reaction Status Date / Time No Known Allergies Allergy Verified 10/23/20 15:13 Home Meds Home Medications Medication Instructions Recorded Confirmed lisinopril 10 mg PO QAM 08/31/18 10/23/20 sertraline 50 mg PO QAM 08/31/18 10/23/20 rosuvastatin 20 mg PO QPM 07/26/19 10/23/20 celecoxib 200 mg PO DAILY 03/12/20 10/23/20 albuterol sulfate 2 puff INHALATION Q4 PRN 10/22/20 10/23/20 Previous Rx's Medication Instructions Recorded amoxicillin-pot clavulanate 1 tab PO BID #14 tab 10/22/20 [Augmentin] ondansetron HCl [Zofran] 4 mg PO Q6H PRN #12 tab 10/22/20 Results & Data (ED) Vital Signs Vital Signs - 24 hr 10/23/20 13:34 10/23/20 14:22 10/23/20 16:27 Temperature 36.1 C L Temperature Source Temporal Artery Scan Pulse Rate 61 87 Pulse Rate [Apical] 87 Pulse Rhythm Regular Respiratory Rate 20 Respiratory Depth Normal Blood Pressure 177/100 H Blood Pressure [Right Arm] 160/101 H Blood Pressure Mean 125 Blood Pressure Mean [Right Arm] 120 Pulse Oximetry 99 98 98 Oxygen Delivery Method Room Air Room Air Sepsis Recent Fever Within 48 Hours No Sepsis New/Unexplained Change in Mental Status N/A Sepsis Action Taken by Nursing No Action Required Laboratory Data Result diagrams: 10/23/20 14:19 10/23/20 14:19 Lab Results 10/23/20 10/23/20 10/23/20 Range/Units 14:19 14:19 14:54 WBC 18.26 H (4.8-10.8) K/uL RBC 5.31 (4.7-6.1) M/uL Hgb 17.2 (14.0-18.0) g/dL Hct 48.1 (42-52) % MCV 90.6 (80-100) fL MCH 32.4 (25-34) pg MCHC 35.8 (32-36) g/dL RDW Std Deviation 42.5 (36.4-46.3) fL RDW Coeff of Ying 12.8 (11.5-14.5) % Plt Count 245 (130-400) K/uL MPV 9.7 (7.4-10.4) fL Immature Gran % (Auto) 0.1 % Neut % (Auto) 88.1 % Lymph % (Auto) 7.9 % Bradley % (Auto) 3.7 % Eos % (Auto) 0.1 % Baso % (Auto) 0.1 % Neut # (Auto) 16.08 H (1.4-6.5) K/uL Lymph # (Auto) 1.45 (1.2-3.4) K/uL Bradley # (Auto) 0.68 H (0.11-0.59) K/uL Eos # (Auto) 0.02 (0-0.5) K/uL Baso # (Auto) 0.01 (0-0.2) K/uL Immature Gran # (Auto) 0.02 (0.00-0.02) K/uL Sodium 138 (136-145) mmol/L Potassium 3.6 (3.5-5.1) mmol/L Chloride 106 (98-107) mmol/L Carbon Dioxide 26 (21-32) mmol/L Anion Gap 6.0 (3-11) BUN 20 H (7-18) mg/dl Creatinine 0.95 (0.6-1.4) mg/dl Est Cr Clr Drug Dosing 94.2 ml/min Est GFR ( Amer) 105.5 ml/min Est GFR (Non-Af Amer) 91.0 ml/min BUN/Creatinine Ratio 20.6 H (10-20) Glucose 127 H (70-99) mg/dl Calcium 8.9 (8.5-10.1) mg/dl Total Bilirubin 0.9 (0.2-1) mg/dl AST 31 (15-37) U/L ALT 40 (12-78) U/L Alkaline Phosphatase 70 (45-117) U/L Total Protein 7.7 (6.4-8.2) gm/dl Albumin 4.2 (3.4-5.0) gm/dl Globulin 3.5 (2.5-4.0) gm/dl Albumin/Globulin Ratio 1.2 (0.9-2) Lipase 147 (73-393) U/L Urine Color Urine Appearance (Clear) Urine pH (4.5-7.5) Ur Specific [place] (1.000-1.030) Urine Protein (Negative) Urine Glucose (UA) (Negative) Urine Ketones (Negative) Urine Blood (Negative) Urine Nitrite (Negative) Urine Bilirubin (Negative) Urine Urobilinogen (Negative) Ur Leukocyte Esterase (Negative) Urine WBC (Auto) (0-5) /hpf Urine RBC (Auto) (0-4) /hpf U Hyaline Cast (Auto) (0-5) /lpf U Epithel Cells (Auto) (0-5) /lpf Urine Bacteria (Auto) (Negative) COVID-19 Eval Order Covid19 at [facility] SARS-CoV-2 (PCR) (Negative) 10/23/20 10/23/20 Range/Units 14:54 16:45 WBC (4.8-10.8) K/uL RBC (4.7-6.1) M/uL Hgb (14.0-18.0) g/dL Hct (42-52) % MCV (80-100) fL MCH (25-34) pg MCHC (32-36) g/dL RDW Std Deviation (36.4-46.3) fL RDW Coeff of Ying (11.5-14.5) % Plt Count (130-400) K/uL MPV (7.4-10.4) fL Immature Gran % (Auto) % Neut % (Auto) % Lymph % (Auto) % Bradley % (Auto) % Eos % (Auto) % Baso % (Auto) % Neut # (Auto) (1.4-6.5) K/uL Lymph # (Auto) (1.2-3.4) K/uL Bradley # (Auto) (0.11-0.59) K/uL Eos # (Auto) (0-0.5) K/uL Baso # (Auto) (0-0.2) K/uL Immature Gran # (Auto) (0.00-0.02) K/uL Sodium (136-145) mmol/L Potassium (3.5-5.1) mmol/L Chloride (98-107) mmol/L Carbon Dioxide (21-32) mmol/L Anion Gap (3-11) BUN (7-18) mg/dl Creatinine (0.6-1.4) mg/dl Est Cr Clr Drug Dosing ml/min Est GFR ( Amer) ml/min Est GFR (Non-Af Amer) ml/min BUN/Creatinine Ratio (10-20) Glucose (70-99) mg/dl Calcium (8.5-10.1) mg/dl Total Bilirubin (0.2-1) mg/dl AST (15-37) U/L ALT (12-78) U/L Alkaline Phosphatase (45-117) U/L Total Protein (6.4-8.2) gm/dl Albumin (3.4-5.0) gm/dl Globulin (2.5-4.0) gm/dl Albumin/Globulin Ratio (0.9-2) Lipase (73-393) U/L Urine Color Yellow Urine Appearance Clear (Clear) Urine pH 7.5 (4.5-7.5) Ur Specific [place] 1.010 (1.000-1.030) Urine Protein Negative (Negative) Urine Glucose (UA) Negative (Negative) Urine Ketones Trace H (Negative) Urine Blood Trace H (Negative) Urine Nitrite Negative (Negative) Urine Bilirubin Negative (Negative) Urine Urobilinogen Negative (Negative) Ur Leukocyte Esterase Negative (Negative) Urine WBC (Auto) 0 (0-5) /hpf Urine RBC (Auto) 0-4 (0-4) /hpf U Hyaline Cast (Auto) 0 (0-5) /lpf U Epithel Cells (Auto) 0-5 (0-5) /lpf Urine Bacteria (Auto) Negative (Negative) COVID-19 Eval Order SARS-CoV-2 (PCR) NEGATIVE (Negative) Administered Medications Sodium Chloride (Nss 1000ml) 1,000 mls @ 125 mls/hr IV .Q8H STA Stop: 10/23/20 22:25 Last Infusion: 10/23/20 18:07 Dose: 0 mls/hr Documented by: [id number] Admin: 10/23/20 15:21 Dose: 125 mls/hr Documented by: [id number] Discontinued Medications Diphenhydramine HCl (Diphenhydramine 50 Mg/Ml Vial) 25 mg IV NOW STA Stop: 10/23/20 14:33 Last Admin: 10/23/20 14:52 Dose: 25 mg Documented by: [id number] Sodium Chloride (Nss 1000ml) 1,000 mls @ 999 mls/hr IV .Q1H1M ONE Stop: 10/23/20 15:26 Last Infusion: 10/23/20 15:21 Dose: 0 mls/hr Documented by: [id number] Admin: 10/23/20 14:41 Dose: 999 mls/hr Documented by: [id number] Ondansetron HCl (Zofran) 8 mg in 54 mls @ 216 mls/hr IV NOW STA Stop: 10/23/20 14:40 Last Infusion: 10/23/20 15:14 Dose: 0 mls/hr Documented by: [id number] Admin: 10/23/20 14:52 Dose: 216 mls/hr Documented by: [id number] Promethazine HCl (Phenergan) 25 mg in 51 mls @ 204 mls/hr IV NOW STA Stop: 10/23/20 18:55 Last Infusion: 10/23/20 19:30 Dose: 0 mls/hr Documented by: [id number] Admin: 10/23/20 19:15 Dose: 204 mls/hr Documented by: [id number] Metoclopramide HCl (Metoclopramide Hcl Inj 5 Mg/Ml 2 Ml Vial) 10 mg IV NOW STA Stop: 10/23/20 14:33 Last Admin: 10/23/20 14:52 Dose: 10 mg Documented by: [id number] Imaging Data Radiologist's Impression: KUB X-Ray 10/23/20 14:26 KUB CLINICAL HISTORY: Vomiting. FINDINGS: 2 AP supine abdominal radiographs are compared to study dated 03/12/2020 and correlated with abdominal CT dated 10/22/2020. There is a nonobstructed abdominal bowel gas pattern. No evidence of intraperitoneal free air is seen on these supine views. There are no abnormal abdominal calcifications. The bony structures appear intact. An electronic device projects over the right upper abdomen. IMPRESSION: Nonobstructed abdominal bowel gas pattern. Electronically signed by: Juan Ramon Baron M.D. 10/23/2020 3:18 PM Discharge Plan Visit Data Chief Complaint: Vomiting Stated Complaint: VOMITING/CAN'T KEEP ANYTHING DOWN ED Provider: Anoop Eddy Discharge Problem: Vomiting Patient Disposition: Admitted As Inpatient Discharge Instructions Interventions: ED Discharge Assessment Last Done: 10/23/20 21:04
[2020-10-23 14:37] LABS: Basophils # (auto) 0.01 K/uL (0-0.2); Basophils % (auto) 0.1 %; Eosinophils # (auto) 0.02 K/uL (0-0.5); Eosinophils % (auto) 0.1 %; Hematocrit (blood only) 48.1 % (42-52); Hemoglobin 17.2 g/dL (14.0-18.0); Immature Granulocytes # (auto) 0.02 K/uL (0.00-0.02); Immature Granulocytes % (auto) 0.1 %; Lymphocytes # (auto) 1.45 K/uL (1.2-3.4); Lymphocytes % (auto) 7.9 %; Mean Corpuscular Hemoglobin 32.4 pg (25-34); Mean Corpuscular Hgb Conc 35.8 g/dL (32-36); Mean Corpuscular Volume 90.6 fL (80-100); Mean Platelet Volume 9.7 fL (7.4-10.4); Monocytes # (auto) 0.68 K/uL (0.11-0.59); Monocytes % (auto) 3.7 %; Neutrophils # (auto) 16.08 K/uL (1.4-6.5); Neutrophils % (auto) 88.1 %; Platelet Count 245 K/uL (130-400); RDW Coefficient of Variation 12.8 % (11.5-14.5); RDW Standard Deviation 42.5 fL (36.4-46.3); Red Blood Count 5.31 M/uL (4.7-6.1); White Blood Count 18.26 K/uL (4.8-10.8)
[2020-10-23 14:54] LABS: Albumin Level 4.2 gm/dl (3.4-5.0); BUN Creatinine Ratio 20.6 (10-20); Calcium 8.9 mg/dl (8.5-10.1); Creatinine Clr Calc Pharmacy 94.2 ml/min; Est GFR (African American) 105.5 ml/min; Potassium 3.6 mmol/L (3.5-5.1)
[2020-10-23 14:57] LABS: Albumin Globulin Ratio 1.2 (0.9-2); Bilirubin,Total 0.9 mg/dl (0.2-1); Globulin 3.5 gm/dl (2.5-4.0); Total Protein 7.7 gm/dl (6.4-8.2)
--- NOTE | 2020-10-23 15:19 | XRay Report ---
KUB CLINICAL HISTORY: Vomiting. FINDINGS: 2 AP supine abdominal radiographs are compared to study dated 03/12/2020 and correlated wit h abdominal CT dated 10/22/2020. There is a nonobstructed abdominal bowel gas pattern. No evidence of intraperitoneal free air is seen on these supine views. There are no abnormal abdominal calcification s. The bony structures appear intact. An electronic device projects over the right upper abdomen. IMPRESSION: Nonobstructed abdominal bowel gas pattern. Electronically signed by: Juan Ramon Baron M.D. 10/23/2020 3:18 PM
[2020-10-23 17:00] LABS: Appearance Urine Clear (Clear); Bacteria Urine Automated Negative (Negative); Bilirubin Urine Negative (Negative); Blood Urine Trace (Negative); Cast Urine Automated 0 /lpf (0-5); Color Urine Yellow; Epithelial Cell Urine Auto 0-5 /lpf (0-5); Glucose Urine UA Negative (Negative); Ketones Urine Trace (Negative); Leukocyte Esterase Urine Negative (Negative); Nitrite Urine Negative (Negative); Protein Urine Negative (Negative); RBC Urine Automated 0-4 /hpf (0-4); Urobilinogen Urine Negative (Negative); WBC Urine Automated 0 /hpf (0-5); pH Urine 7.5 (4.5-7.5)
[2020-10-23] MEDS ORDERED: PROMETHAZINE 25 MG/51 ML BAG IV STA (18:41)
--- NOTE | 2020-10-23 21:18 | History and Physical Report ---
CHIEF COMPLAINT: Nausea, vomiting. HISTORY OF PRESENT ILLNESS: This is a 55-year-old male with past medical history significant for hyperlipidemia, asthma -- moderate/persistent, hypertension, lumbar disk disease, primary osteoarthritis of left shoulder, left cervical radiculopathy, leukocytosis, anxiety, depression, tobacco use disorder, major depression, comes in with nausea and vomiting. The patient says the nausea, vomiting started on Wednesday morning, it is not getting better. He was in the ER yesterday. CAT scan of the abdomen and pelvis was done, which was unremarkable. His white count was elevated. He was discharged on Augmentin but the nausea, vomiting was not getting better, he was not able to take any oral medications, so he came back. Denies any abdominal pain. No diarrhea, no blood in stool or black stools. Normal bladder movements. He was feeling chills, but no fever. Has some dry cough, no chest pain. Has ongoing left shoulder pain and numbness of left arm, was evaluated by primary care doctor. X-rays were done recently, supposed to follow up with the PCP. He had these episodes in the past with nausea, vomiting and was treated with antibiotics, but this time, there seems to be no infection. The patient states he also smokes marijuana for a long time. Smokes daily. Denies any headache, no blurred vision, no earache, no runny nose, no sore throat, no dysphagia, no rash. Currently, resting comfortably and hemodynamically stable. ALLERGIES: No known drug allergies. PAST MEDICAL HISTORY: As mentioned above. PAST SURGICAL HISTORY: Colonoscopy, EGDs. MEDICATIONS: The patient is on albuterol 2 inhalations q.4 hours p.r.n., Augmentin 1 tablet p.o. b.i.d., celecoxib 200 mg p.o. daily, lisinopril 10 mg p.o. a.m., Zofran 4 mg p.o. q.6 hours p.r.n.,Crestor 20 mg p.o. q.p.m., Zoloft 50 mg p.o. a.m. FAMILY HISTORY: Significant for father has blood clot, maternal grandmother has colon cancer, paternal grandmother has diabetes, sister has diverticulitis. SOCIAL HISTORY: , former smoker, quit in 1991, smoked for 40 years. Alcohol, rarely. Drug use, smokes marijuana daily. REVIEW OF SYSTEMS: As per HPI. Rest of the review of systems is negative. PHYSICAL EXAMINATION: GENERAL: The patient is of moderate build, not in acute distress. VITAL SIGNS: Temperature 36.1, pulse 87, respiration 20, blood pressure 165/101, oxygen 98% on room air. HEENT: Pupils equal, round and reactive to light. No pallor. No icterus. Oral mucosa moist. NECK: No JVD or neck masses. CARDIOVASCULAR: S1 and S2 heard. Regular rate and rhythm with, no murmur, no gallop. RESPIRATORY SYSTEM: Normal AP diameter. No accessory muscle use. No wheezing, no crackles. ABDOMEN: Soft, bowel sounds present, nontender, no distention. CENTRAL NERVOUS SYSTEM: Cranial nerves II-XII grossly intact, nonfocal. EXTREMITIES: No edema, no erythema. LABORATORY DATA: WBC 18.62, hemoglobin 17.2, hematocrit 48.1, platelets 245. Sodium 138, potassium 3.6, chloride 106, bicarb 26, BUN 20, creatinine 0.9, serum glucose 127, calcium 8.9, total bilirubin 0.9, AST 31, ALT 40, alkaline phosphatase 70, lipase 147. Urinalysis: Trace ketones, trace blood. SARS-CoV-2 PCR negative. KUB x-ray, nonobstructive abdominal bowel gas pattern. ASSESSMENT AND PLAN: This 55-year-old male presents with ongoing nausea, vomiting. 1. Persistent nausea or vomiting, most likely from cannabis hyperemesis syndrome. He had similar episodes in the past, he smokes marijuana for a long time. Yesterday's CAT scan and today's KUB are unremarkable. We will keep him n.p.o., IV fluids, IV antiemetics. Gastrointestinal consult in the a.m. for further recommendations. We will monitor in the medical floor. 2. leukocytosis mostly reactive. Will follow. 3. History of hypertension: Lisinopril if he is able to take p.o. IV hydralazine p.r.n. We will monitor the blood pressure. 4. Hyperlipidemia: On statin. 5. Depression: On Zoloft. 6. Asthma: Moderate, persistent. On albuterol p.r.n. 7. Deep vein thrombosis prophylaxis: Sequential compression devices. DISPOSITION: Observation in medical floor. Expect to discharge home and follow up with family doctor. Level 1 full code. Job ID: [id number] [facility]
[2020-10-23] MEDS ORDERED: ALBUTEROL HFA 8 GM INHALER INH PRN (21:20)
[2020-10-23] MEDS ORDERED: hydrALAZINE HCL 20 MG/ML VIAL IV PRN (21:20)
[2020-10-23] MEDS ORDERED: ROSUVASTATIN CALCIUM 20 MG TAB PO SCH (21:20)
[2020-10-23] MEDS ORDERED: ACETAMINOPHEN 325 MG TAB PO PRN (21:20)
[2020-10-23] MEDS: D5W AND NSS 1,000 ML IV SCH (21:55)
[2020-10-24] MEDS: ONDANSETRON INJ 2 MG/ML 2 ML VIAL IV PRN ×2 (04:31→14:50)
[2020-10-24] MEDS: D5W AND NSS 1,000 ML IV SCH (05:33)
[2020-10-24 06:25] LABS: Basophils # (auto) 0.01 K/uL (0-0.2); Basophils % (auto) 0.1 %; Eosinophils # (auto) 0.12 K/uL (0-0.5); Eosinophils % (auto) 0.6 %; Hematocrit (blood only) 47.7 % (42-52); Hemoglobin 16.7 g/dL (14.0-18.0); Immature Granulocytes # (auto) 0.07 K/uL (0.00-0.02); Immature Granulocytes % (auto) 0.4 %; Lymphocytes % (auto) 12.1 %; Mean Corpuscular Hemoglobin 31.9 pg (25-34); Mean Platelet Volume 9.5 fL (7.4-10.4); Monocytes # (auto) 1.82 K/uL (0.11-0.59); Monocytes % (auto) 9.6 %; Neutrophils # (auto) 14.67 K/uL (1.4-6.5); Neutrophils % (auto) 77.2 %; Platelet Count 245 K/uL (130-400); RDW Coefficient of Variation 12.6 % (11.5-14.5); RDW Standard Deviation 42.6 fL (36.4-46.3); Red Blood Count 5.24 M/uL (4.7-6.1); White Blood Count 18.99 K/uL (4.8-10.8)
[2020-10-24 06:52] LABS: BUN Creatinine Ratio 16.7 (10-20); Calcium 8.2 mg/dl (8.5-10.1); Creatinine Clr Calc Pharmacy 98.4 ml/min; Est GFR (African American) 115.9 ml/min; Magnesium 2.5 mg/dl (1.8-2.4); Potassium 3.3 mmol/L (3.5-5.1)
[2020-10-24] MEDS ORDERED: SERTRALINE HCL 50 MG TABLET PO SCH (09:00)
[2020-10-24] MEDS ORDERED: lisinopril 10 MG TAB PO SCH (09:00)
--- NOTE | 2020-10-24 09:38 | Gastrointestinal Consultation ---
Date of Consultation October 24, 2020 Assessment & Plan (1) Vomitin55 year old male with nausea/vomiting w/ unremarkable CT, KUB imaging and normal LFTS and lipase. Will arrange EGD today to rule out gastritis, PUD etc. Clinical concern for cannabinoid hyperemesis syndrome NPO EGD today PO PPI BID Antiemetics PRN Marijuana cessation was recommended for at least 6 weeks to see if symptms improve He notes this is going to be very hard and will need help remaining marijuana free Attg add: I interviewed and examined pt, reviewed chart and labs. Pt with h/o chronic MJ use admit with longstanding h/o episodic n/v. Pt reports episodes of intractable n/v that last a few days and then resolved, occurring once a year. He adamantly and repeatedly denies any abdominal pain with episodes, and denies associated with constipation. Labs, imaging without evidence of choledocholithiasis, obstruction. Likey cannabinoid hyperemesis. EGD today, plan to adv diet as tolerated if EGD WNL. Consider Emend if persistent symptoms. History of Present Illness Reason for Consultation: nausea/vomiting Requesting Physician: Dale Attending Physician: Braeden Hunter, DO History of Present Illness 55 year old male with history of moderate/persistent, hypertension, lumbar disk disease, primary osteoarthritis of left shoulder, left cervical radiculopathy, leukocytosis, anxiety, depression, tobacco use disorder, major depression, admitted through the ED with nausea and vomiting. Notes symptoms started last week. Nausea/vomiting. Persistent, numerous bouts daily. Without any abdoinla pain. No black or bloody emesis. + GERD type symptoms. No change in bowel habits, specifically no black or bloody stools + social ETOH + daily marijuana since age 12 CTAP w/o acute findings KUB w/o obstruction Lipase and LFTs WNL Allergies Allergy/AdvReac Type Severity Reaction Status Date / Time No Known Allergies Allergy Verified 10/23/20 15:13 Home Medications Medication Instructions Recorded Confirmed Type lisinopril 10 mg PO QAM 08/31/18 10/23/20 History sertraline 50 mg PO QAM 08/31/18 10/23/20 History rosuvastatin 20 mg PO QPM 07/26/19 10/23/20 History celecoxib 200 mg PO DAILY 03/12/20 10/23/20 History albuterol sulfate 2 puff INHALATION Q4 PRN 10/22/20 10/23/20 History amoxicillin-pot clavulanate 1 tab PO BID #14 tab 10/22/20 10/23/20 Rx [Augmentin] ondansetron HCl [Zofran] 4 mg PO Q6H PRN #12 tab 10/22/20 10/23/20 Rx potassium chloride 20 meq PO BID #14 tab 10/24/20 Rx prochlorperazine maleate 10 mg PO Q8H PRN #20 tab 10/24/20 Rx [Compazine] Patient History Medical History Asthma Hyperlipidemia Hypertension Surgical History No significant past surgical history Social History Smoking Status: Former smoker Second Hand Exposure: Yes; Do You Dip or Chew Tobacco: No; Tobacco Cessation Education Requested by Patient: No Hx Alcohol Use: No Hx Substance Use: Yes Last Used Substance: Hours (ago) Preferred Language: Citizen Of [place] Communication Ability: Effective 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: No Beliefs That Will Affect Care: None marital status: Current Living Situation: Spouse Current Living Situation Comment: Lives with spouse current occupational status: employed Other Information That Helps Us Care for You: No Feels Safe at Home: Yes Safety Concerns: Feels Safe At This Time Assistive Devices: None Review of Systems Review of Systems: All systems reviewed & are unremarkable except as noted in HPI & below Physical Exam Constitutional: WD/WN, vitals as above well nourished; no acute distress and not ill appearing Neck: trachea midline, no thyromegaly Respiratory: normal respiratory effort, lungs clear to auscultation Cardiovascular: RRR, no murmur, no edema Gastrointestinal (Abdomen): normal bowel sounds, soft, nontender, no hepatosplenomegaly Results & Data ([facility]) Vital Signs (Past 12 Hours) Vital Signs Temp Pulse Resp BP Pulse Ox 10/24/20 07:36 36.8 C 70 18 156/91 H 94 10/23/20 23:54 37.1 C 71 18 175/89 H 94 Laboratory Results 10/24/20 10/24/20 10/23/20 Range/Units 06:01 06:01 16:45 WBC 18.99 H (4.8-10.8) K/uL RBC 5.24 (4.7-6.1) M/uL Hgb 16.7 (14.0-18.0) g/dL Hct 47.7 (42-52) % MCV 91.0 (80-100) fL MCH 31.9 (25-34) pg MCHC 35.0 (32-36) g/dL RDW Std Deviation 42.6 (36.4-46.3) fL RDW Coeff of Ying 12.6 (11.5-14.5) % Plt Count 245 (130-400) K/uL MPV 9.5 (7.4-10.4) fL Immature Gran % (Auto) 0.4 % Neut % (Auto) 77.2 % Lymph % (Auto) 12.1 % [place] % (Auto) 9.6 % Eos % (Auto) 0.6 % Baso % (Auto) 0.1 % Neut # (Auto) 14.67 H (1.4-6.5) K/uL Lymph # (Auto) 2.30 (1.2-3.4) K/uL [place] # (Auto) 1.82 H (0.11-0.59) K/uL Eos # (Auto) 0.12 (0-0.5) K/uL Baso # (Auto) 0.01 (0-0.2) K/uL Immature Gran # (Auto) 0.07 H (0.00-0.02) K/uL Sodium 139 (136-145) mmol/L Potassium 3.3 L (3.5-5.1) mmol/L Chloride 109 H (98-107) mmol/L Carbon Dioxide 24 (21-32) mmol/L Anion Gap 6.0 (3-11) BUN 14 (7-18) mg/dl Creatinine 0.84 (0.6-1.4) mg/dl Est Cr Clr Drug Dosing 98.4 ml/min Est GFR ( Amer) 115.9 ml/min Est GFR (Non-Af Amer) 100.0 ml/min BUN/Creatinine Ratio 16.7 (10-20) Glucose 130 H (70-99) mg/dl Calcium 8.2 L (8.5-10.1) mg/dl Magnesium 2.5 H (1.8-2.4) mg/dl Total Bilirubin (0.2-1) mg/dl AST (15-37) U/L ALT (12-78) U/L Alkaline Phosphatase (45-117) U/L Total Protein (6.4-8.2) gm/dl Albumin (3.4-5.0) gm/dl Globulin (2.5-4.0) gm/dl Albumin/Globulin Ratio (0.9-2) Lipase (73-393) U/L Urine Color Yellow Urine Appearance Clear (Clear) Urine pH 7.5 (4.5-7.5) Ur Specific [place] 1.010 (1.000-1.030) Urine Protein Negative (Negative) Urine Glucose (UA) Negative (Negative) Urine Ketones Trace H (Negative) Urine Blood Trace H (Negative) Urine Nitrite Negative (Negative) Urine Bilirubin Negative (Negative) Urine Urobilinogen Negative (Negative) Ur Leukocyte Esterase Negative (Negative) Urine WBC (Auto) 0 (0-5) /hpf Urine RBC (Auto) 0-4 (0-4) /hpf U Hyaline Cast (Auto) 0 (0-5) /lpf U Epithel Cells (Auto) 0-5 (0-5) /lpf Urine Bacteria (Auto) Negative (Negative) COVID-19 Eval Order SARS-CoV-2 (PCR) (Negative) Hepatitis C Ab Screen (Neg) 10/23/20 10/23/20 10/23/20 Range/Units 14:54 14:54 14:19 WBC (4.8-10.8) K/uL RBC (4.7-6.1) M/uL Hgb (14.0-18.0) g/dL Hct (42-52) % MCV (80-100) fL MCH (25-34) pg MCHC (32-36) g/dL RDW Std Deviation (36.4-46.3) fL RDW Coeff of Ying (11.5-14.5) % Plt Count (130-400) K/uL MPV (7.4-10.4) fL Immature Gran % (Auto) % Neut % (Auto) % Lymph % (Auto) % [place] % (Auto) % Eos % (Auto) % Baso % (Auto) % Neut # (Auto) (1.4-6.5) K/uL Lymph # (Auto) (1.2-3.4) K/uL [place] # (Auto) (0.11-0.59) K/uL Eos # (Auto) (0-0.5) K/uL Baso # (Auto) (0-0.2) K/uL Immature Gran # (Auto) (0.00-0.02) K/uL Sodium (136-145) mmol/L Potassium (3.5-5.1) mmol/L Chloride (98-107) mmol/L Carbon Dioxide (21-32) mmol/L Anion Gap (3-11) BUN (7-18) mg/dl Creatinine (0.6-1.4) mg/dl Est Cr Clr Drug Dosing ml/min Est GFR ( Amer) ml/min Est GFR (Non-Af Amer) ml/min BUN/Creatinine Ratio (10-20) Glucose (70-99) mg/dl Calcium (8.5-10.1) mg/dl Magnesium (1.8-2.4) mg/dl Total Bilirubin (0.2-1) mg/dl AST (15-37) U/L ALT (12-78) U/L Alkaline Phosphatase (45-117) U/L Total Protein (6.4-8.2) gm/dl Albumin (3.4-5.0) gm/dl Globulin (2.5-4.0) gm/dl Albumin/Globulin Ratio (0.9-2) Lipase (73-393) U/L Urine Color Urine Appearance (Clear) Urine pH (4.5-7.5) Ur Specific [place] (1.000-1.030) Urine Protein (Negative) Urine Glucose (UA) (Negative) Urine Ketones (Negative) Urine Blood (Negative) Urine Nitrite (Negative) Urine Bilirubin (Negative) Urine Urobilinogen (Negative) Ur Leukocyte Esterase (Negative) Urine WBC (Auto) (0-5) /hpf Urine RBC (Auto) (0-4) /hpf U Hyaline Cast (Auto) (0-5) /lpf U Epithel Cells (Auto) (0-5) /lpf Urine Bacteria (Auto) (Negative) COVID-19 Eval Order Covid19 at [facility] SARS-CoV-2 (PCR) NEGATIVE (Negative) Hepatitis C Ab Screen Neg (Neg) 10/23/20 10/23/20 Range/Units 14:19 14:19 WBC 18.26 H (4.8-10.8) K/uL RBC 5.31 (4.7-6.1) M/uL Hgb 17.2 (14.0-18.0) g/dL Hct 48.1 (42-52) % MCV 90.6 (80-100) fL MCH 32.4 (25-34) pg MCHC 35.8 (32-36) g/dL RDW Std Deviation 42.5 (36.4-46.3) fL RDW Coeff of Ying 12.8 (11.5-14.5) % Plt Count 245 (130-400) K/uL MPV 9.7 (7.4-10.4) fL Immature Gran % (Auto) 0.1 % Neut % (Auto) 88.1 % Lymph % (Auto) 7.9 % [place] % (Auto) 3.7 % Eos % (Auto) 0.1 % Baso % (Auto) 0.1 % Neut # (Auto) 16.08 H (1.4-6.5) K/uL Lymph # (Auto) 1.45 (1.2-3.4) K/uL [place] # (Auto) 0.68 H (0.11-0.59) K/uL Eos # (Auto) 0.02 (0-0.5) K/uL Baso # (Auto) 0.01 (0-0.2) K/uL Immature Gran # (Auto) 0.02 (0.00-0.02) K/uL Sodium 138 (136-145) mmol/L Potassium 3.6 (3.5-5.1) mmol/L Chloride 106 (98-107) mmol/L Carbon Dioxide 26 (21-32) mmol/L Anion Gap 6.0 (3-11) BUN 20 H (7-18) mg/dl Creatinine 0.95 (0.6-1.4) mg/dl Est Cr Clr Drug Dosing 94.2 ml/min Est GFR ( Amer) 105.5 ml/min Est GFR (Non-Af Amer) 91.0 ml/min BUN/Creatinine Ratio 20.6 H (10-20) Glucose 127 H (70-99) mg/dl Calcium 8.9 (8.5-10.1) mg/dl Magnesium (1.8-2.4) mg/dl Total Bilirubin 0.9 (0.2-1) mg/dl AST 31 (15-37) U/L ALT 40 (12-78) U/L Alkaline Phosphatase 70 (45-117) U/L Total Protein 7.7 (6.4-8.2) gm/dl Albumin 4.2 (3.4-5.0) gm/dl Globulin 3.5 (2.5-4.0) gm/dl Albumin/Globulin Ratio 1.2 (0.9-2) Lipase 147 (73-393) U/L Urine Color Urine Appearance (Clear) Urine pH (4.5-7.5) Ur Specific [place] (1.000-1.030) Urine Protein (Negative) Urine Glucose (UA) (Negative) Urine Ketones (Negative) Urine Blood (Negative) Urine Nitrite (Negative) Urine Bilirubin (Negative) Urine Urobilinogen (Negative) Ur Leukocyte Esterase (Negative) Urine WBC (Auto) (0-5) /hpf Urine RBC (Auto) (0-4) /hpf U Hyaline Cast (Auto) (0-5) /lpf U Epithel Cells (Auto) (0-5) /lpf Urine Bacteria (Auto) (Negative) COVID-19 Eval Order SARS-CoV-2 (PCR) (Negative) Hepatitis C Ab Screen (Neg)
--- NOTE | 2020-10-24 10:39 | Discharge Summary ---
Date of Service October 24, 2020 Admission HPI Per Admitting Provider 55-year-old male with past medical history significant for hyperlipidemia, asthma -- moderate/persistent, hypertension, lumbar disk disease, primary osteoarthritis of left shoulder, left cervical radiculopathy, leukocytosis, anxiety, depression, tobacco use disorder, major depression, comes in with nausea and vomiting. The patient says the nausea, vomiting started on Wednesday morning, it is not getting better. He was in the ER yesterday. CAT scan of the abdomen and pelvis was done, which was unremarkable. His white count was elevated. He was discharged on Augmentin but the nausea, vomiting was not getting better, he was not able to take any oral medications, so he came back. Denies any abdominal pain. No diarrhea, no blood in stool or black stools. Normal bladder movements. He was feeling chills, but no fever. Has some dry cough, no chest pain. Has ongoing left shoulder pain and numbness of left arm, was evaluated by primary care doctor. X-rays were done recently, supposed to follow up with the PCP. He had these episodes in the past with nausea, vomiting and was treated with antibiotics, but this time, there seems to be no infection. The patient states he also smokes marijuana for a long time. Smokes daily. Denies any headache, no blurred vision, no earache, no runny nose, no sore throat, no dysphagia, no rash. Currently, resting comfortably and hemodynamically stable. Admission Exam Per Admitting Provider GENERAL: The patient is of moderate build, not in acute distress. VITAL SIGNS: Temperature 36.1, pulse 87, respiration 20, blood pressure 165/101, oxygen 98% on room air. HEENT: Pupils equal, round and reactive to light. No pallor. No icterus. Oral mucosa moist. NECK: No JVD or neck masses. CARDIOVASCULAR: S1 and S2 heard. Regular rate and rhythm with, no murmur, no gallop. RESPIRATORY SYSTEM: Normal AP diameter. No accessory muscle use. No wheezing, no crackles. ABDOMEN: Soft, bowel sounds present, nontender, no distention. CENTRAL NERVOUS SYSTEM: Cranial nerves II-XII grossly intact, nonfocal. EXTREMITIES: No edema, no erythema. Principal Diagnosis 1. Persistent nausea or vomiting from cannabis hyperemesis syndrome. 2. Reactive leukocytosis. 3. Hypertension: 4. Hyperlipidemia: 5. Depression: 6. Asthma: 7. Hypokalemia Discharge Exam ROS-No Headache, No Visual Changes, No Nausea, No Vomiting, No Fever, No Chills, No Neck Pain or Stiffness, No Chest Pain, No Palpitations, No SOB, No BERMAN, No Cough, No Sputum, No Wheezing, No Abdominal Pain, No Diarrhea, No Hematemesis, No Hemoptysis, No Unexpected Weight Loss, No Flank pain, No Melena, No Hematochezia, No Frequency, No Urgency, No Burning, No Hematuria, No Rashes, No Diaphoresis. Appetite is Normal Physical Exam Gen-AAO x 3, NAD, Afebrile Head-NCAT, EOMI, PERRLA, Anicteric Sclera, No Posterior Pharyngeal Erythema Neck-Supple, No JVD, No Thyromegaly, No Masses, No LAD, No Bruits Lungs-Clear to Auscultation Bilaterally, No Rales, No Rhonchi, No Wheezing, No Crepitus Chest-No S4, +S1, +S2, No S3, No Murmurs, No Rubs, No Gallops, No Ectopy Abdomen-Soft, Bowel Sounds Present, Non Tender, Non Distended, No Hepatomegaly, No Splenomegaly, No Palpable Masses, No Rebound, No Rigidity, No Guarding Musculoskeletal-Full Range of Motion Bilaterally, No CVAT Extremities-No Cyanosis, No Clubbing, No Edema Nuero-Cranial Nerves II-XII grossly intact, Motor WNL, DTRs WNL, Strength WNL, Non Focal Psych-Normal Mood Discharge Data Allergies Allergy/AdvReac Type Severity Reaction Status Date / Time No Known Allergies Allergy Verified 10/23/20 15:13 Consultations 10/23/20 18:47 ED Decision to Admit Stat 10/24/20 08:00 Consult Gastroenterology Routine Allergies No Known Allergies Allergy (Verified 10/23/20 15:13) Height/Weight/Isolation Height 5 ft 8 in Weight 78 kg Chemistry 10/23/20 10/24/20 14:19 06:01 Sodium 138 139 Potassium 3.6 3.3 L Chloride 106 109 H Carbon Dioxide 26 24 Anion Gap 6.0 6.0 BUN 20 H 14 Creatinine 0.95 0.84 Glucose 127 H 130 H Urinalysis 10/23/20 16:45 Urine Color Yellow Urine Appearance Clear Urine pH 7.5 Ur Specific [place] 1.010 Urine Protein Negative Urine Glucose (UA) Negative Urine Ketones Trace H Urine Blood Trace H Urine Nitrite Negative Urine Bilirubin Negative Procedures Performed Operation Date: 10/24/20 18:15 <No data on this case meets the specified criteria> Hospital Course (1) Vomiting: (2) Acute dehydration: (3) Leukocytosis: (4) Hyperlipidemia: (5) Hypertension: Hyperemesis from Marijuana, DC on K and Compazine, stop MJ for 7-10 days Total Time Total Time Spent Total Time Spent (In Minutes): 45 Total Time Includes: Examination of the Patient, Discharge Planning, Medication Reconciliation and Communication With Other Providers Discharge Plan Discharge Items Patient Disposition: Home - Self-Care Reason For Visit: N/V Discharge Diagnosis: 1. Persistent nausea or vomiting from cannabis hyperemesis syndrome. 2. Reactive leukocytosis. 3. Hypertension: 4. Hyperlipidemia: 5. Depression: 6. Asthma 7. Hypokalemia Condition on Discharge: Good Health Concerns: Marijuana use Activity: Resume your previous activity Lifting: Gradually increase as tolerated Bathing: No limitations Sexual Activity: When tolerated Exercise/Sports: Gradually increase as tolerated Driving/Machine Use: No limitations Weightbearing: Full weightbearing Non-emergency contact: Primary Care Provider Call non-emergency contact if: you have any medication questions Follow-up/Referrals: Lalit Mcclure DO [Primary Care Provider] - (Date & Time 10/31/2020 11:20 AM Provider Lalit Mcclure DO Department [facility] ) Diet: Heart Healthy Add Attending Provider Instructions: No marijuana 7-10 days Pending Studies at Discharge: No Stand-Alone Forms: [employer], Smoking Cessation Medications and DC Order Prescriptions: New potassium chloride 20 mEq tablet extended release 20 meq PO BID Qty: 14 RF: 0 prochlorperazine maleate [Compazine] 10 mg tablet 10 mg PO Q8H PRN (Reason: nausea and vomiting) Qty: 20 RF: 0 Continued rosuvastatin 20 mg tablet 20 mg PO QPM RF: 0 celecoxib 200 mg capsule 200 mg PO DAILY RF: 0 lisinopril 10 mg tablet 10 mg PO QAM RF: 0 sertraline 50 mg tablet 50 mg PO QAM RF: 0 albuterol sulfate 90 mcg/actuation HFA aerosol inhaler 2 puff INHALATION Q4 PRN (Reason: Shortness Of Breath Or Wheezing) RF: 0 ondansetron HCl [Zofran] 4 mg tablet 4 mg PO Q6H PRN (Reason: nausea and vomiting) Qty: 12 RF: 0 Discontinued amoxicillin-pot clavulanate [Augmentin] 875-125 mg tablet 1 tab PO BID Qty: 14 RF: 0 Discharge Orders: Discharge Order (Routine); Ordered 10/24/20 Ordered By: Braeden Webb/Other Patient Handouts: Nausea Vomit Control Admission Data Admit Date/Time: 10/23/20 19:42 Attending Provider: Braeden Hunter Admit Provider: Aldo Crow Primary Care Provider: Lalit Mcclure Other Providers: Monserrat Infante ; Maty Case ; Jack Ham ; Jovana Thrasher ; Greg Nash ; Ashly Laureano ; Justus Ingram ; Dg Stark ; Ann Marie Wesley ; Tanya Varghese ; Myrna Martinez ; Yoko Mak ; Shalom Holden ; Armando Lopez
[2020-10-24] MEDS ORDERED: ATROPINE SULFATE 0.1 MG/ML 10ML SYR IV PRN (12:34)
[2020-10-24] MEDS ORDERED: ePHEDrine sulfate 50 MG/ML AMP IV PRN (12:34)
--- NOTE | 2020-10-24 12:34 | Anesthesiology Consultation ---
Date of Service October 24, 2020 Assessment & Plan Chart Review Chart Review: Acceptable Risk for Surgery and Patient NOT seen in Pre Admission Testing Consults Requested none ASA ASA3 Proposed Anesthesia Anesthesia Type: MAC Risk / Benefits Reviewed With: PT / POA / Parent / Guardian, Accepts Plan and Informed Consent Obtained Additional Comments: covid test negative History Surgery Operation Date: 10/24/20 18:15 Proposed Procedures p Esophagogastroduodenoscopy Dr Larkin - Justus Ingram MD Height/Weight Height: 5 ft 8 in Weight: 78 kg Allergies Allergy/AdvReac Type Severity Reaction Status Date / Time No Known Allergies Allergy Verified 10/23/20 15:13 Medications Home Medications Medication Instructions Recorded Confirmed Last Taken lisinopril 10 mg PO QAM 08/31/18 10/23/20 03/08/20 sertraline 50 mg PO QAM 08/31/18 10/23/20 03/08/20 rosuvastatin 20 mg PO QPM 07/26/19 10/23/20 03/08/20 celecoxib 200 mg PO DAILY 03/12/20 10/23/20 Unknown albuterol sulfate 2 puff INHALATION Q4 PRN 10/22/20 10/23/20 Unknown amoxicillin-pot clavulanate 1 tab PO BID #14 tab 10/22/20 10/23/20 Unknown [Augmentin] ondansetron HCl [Zofran] 4 mg PO Q6H PRN #12 tab 10/22/20 10/23/20 Unknown potassium chloride 20 meq PO BID #14 tab 10/24/20 Unknown prochlorperazine maleate 10 mg PO Q8H PRN #20 tab 10/24/20 Unknown [Compazine] Active Medications Generic Name Dose Route Start Last Admin Trade Name Freq PRN Reason Stop Dose Admin Dextrose/Sodium Chloride 1,000 mls @ 125 mls/hr 10/23/20 21:20 10/24/20 05:33 D5w And Nss IV 11/22/20 21:19 125 mls/hr .Q8H DION Administration Lisinopril 10 mg 10/24/20 09:00 10/24/20 07:53 Lisinopril 10 Mg Tab PO 11/23/20 08:59 10 mg QAM DION Administration Ondansetron HCl 4 mg 10/23/20 21:20 10/24/20 04:31 Ondansetron Inj 2 Mg/Ml 2 Ml Vial IV 11/22/20 21:19 4 mg Q6H PRN Administration Nausea Rosuvastatin Calcium 20 mg 10/23/20 21:20 10/23/20 23:15 Rosuvastatin Calcium 20 Mg Tab PO 11/22/20 21:19 Not Given QPM DION Sertraline HCl 50 mg 10/24/20 09:00 10/24/20 07:53 Sertraline Hcl 50 Mg Tablet PO 11/23/20 08:59 50 mg QAM DION Administration NPO Date Last Intake of Fluids: 10/24/20 Time Last Intake of Fluids: 08:00 Last Intake of Fluids Comment: sip with pills Date Last Intake of Solids: 10/20/20 Past Medical History Medical History Asthma Hyperlipidemia Hypertension Exercise / Class Metabolic Activity II 4-5 Yardwork/Stairs/Walk up hill Past Surgical History Surgical History No significant past surgical history Past Anesthesia History No Hx of Anesthesia Complications and No Family Hx of Anesthesia Complications History of PONV No Hx of PONV and No Hx of Motion Sickness Social History Smoking Status: Former smoker tobacco type: cigarettes and smokeless tobacco Do You Dip or Chew Tobacco: No Hx Alcohol Use: No Hx Substance Use: Yes substance use type: marijuana Last Used Substance: Hours (ago) Physical Exam Vital Signs Last Vital Signs Temp 37 C 10/24/20 12:18 Pulse 58 L 10/24/20 12:18 Resp 16 10/24/20 12:18 BP 128/87 10/24/20 12:18 Pulse Ox 95 10/24/20 12:18 Constitutional average body habitus ENMT Mouth: + dentition abnormality, + dental caries, + poor dentition, + chipped teeth and + loose teeth Thyromental Distance: > or= 3.5 Finger Breadths Mallampati Class: II Neck normal visual inspection, trachea midline and + facial hair; neck extension not limited Respiratory normal respiratory effort Auscultation: lungs clear to auscultation bilaterally Cardiovascular Rate/Rhythm: regular rate and regular rhythm Heart Sounds: no murmur Vessels: no carotid bruit Musculoskeletal Spine: normal cervical ROM Extremities: extremities normal to inspection Neurologic moves all extremities Motor/Sensory: no sensory deficit Psychiatric Orientation: alert and oriented x 3 Testing Laboratory Results 10/24/20 06:01 10/24/20 06:01 Urine Color Yellow 10/23/20 16:45 Urine Appearance Clear (Clear) 10/23/20 16:45 Urine pH 7.5 (4.5-7.5) 10/23/20 16:45 Ur Specific [place] 1.010 (1.000-1.030) 10/23/20 16:45 Urine Protein Negative (Negative) 10/23/20 16:45 Urine Glucose (UA) Negative (Negative) 10/23/20 16:45 Urine Ketones Trace (Negative) H 10/23/20 16:45 Urine Nitrite Negative (Negative) 10/23/20 16:45 Ur Leukocyte Esterase Negative (Negative) 10/23/20 16:45 Urine WBC (Auto) 0 /hpf (0-5) 10/23/20 16:45 Urine RBC (Auto) 0-4 /hpf (0-4) 10/23/20 16:45 U Hyaline Cast (Auto) 0 /lpf (0-5) 10/23/20 16:45 U Epithel Cells (Auto) 0-5 /lpf (0-5) 10/23/20 16:45 Urine Bacteria (Auto) Negative (Negative) 10/23/20 16:45 Electrocardiogram Date: 10/22/20 Findings: + NSR @ (at 70) Chest X-Ray Date: 10/22/20 Findings: + NAD
--- NOTE | 2020-10-24 12:49 | History & Physical Bridge Note ---
Date of Service October 24, 2020 History & Physical Bridge Note I have examined the patient, reviewed the History & Physical and in the interval since the performance of the History & Physical I have noted the following changes of clinical significance: no changes noted
[2020-10-24] MEDS ORDERED: MIDAZOLAM HCL 1 MG/ML 2ML VIAL ONE (12:54)
[2020-10-24] MEDS ORDERED: LIDOCAINE 2% 2 ML VIAL/AMP(20MG/ML) INFIL ONE (12:55)
[2020-10-24] MEDS ORDERED: PROPOFOL IV EMULSION 10 MG/ML 20 ML VIAL IV ONE ×2 (12:55→13:17)
[2020-10-24] MEDS ORDERED: ONDANSETRON INJ 2 MG/ML 2 ML VIAL ONE (12:55)
--- NOTE | 2020-10-24 13:22 | GI REPORT ---
Patient Name: Dc Dudley Procedure Date: 10/24/2020 12:56 PM Date of : 1965 Admit Type: Inpatient Age: 55 Gender: Male Attending MD: Justus Ingram MD Procedure: Upper GI endoscopy Providers: Justus Ingram MD Referring MD: Braeden Hunter Do Indications: Nausea with vomiting Medicines: See the Anesthesia note for documentation of the administered medications Complications: No immediate complications. Estimated Blood Loss: Estimated blood loss: none. Procedure: Pre-Anesthesia Assessment: - ASA Grade Assessment: III - A patient with severe systemic disease. After obtaining informed consent, the endoscope was passed under direct vision. Throughout the procedure, the patient's blood pressure, pulse, and oxygen saturations were monitored continuously. The Endoscope was introduced through the mouth, and advanced to the third part of duodenum. The upper GI endoscopy was accomplished without difficulty. The patient tolerated the procedure well. Findings: There were faint rings in the lower esophagus. The Z-line was found 40 cm from the incisors. LA Grade D (one or more mucosal breaks involving at least 75% of esophageal circumference) esophagitis with mucosal friability, likely related to recent nausea and vomiting. There was a small hiatal hernia measuring 1 cm in axial length. Hill class 2. The stomach was normal. There were multiple small erosions throughout the duodenal bulb, the second and third portion of the duodenum. Biopsies done throughout the duodenum, stomach, and esophagus. Impression: Severe esophagitis. Severe duodenitis, involving second and third portion of duodenum. This is suggestive of NSAID abuse; ddx includes hypergastrinemia. Recommendation: - Discharge patient to floor. Follow up pathology results. - Diet as tolerated. Emend x 1 dose if n/v is persistent. - BID PPI x 8 weeks. Repeat EGD in 4 weeks. Check celiac serologies and Hp stool antigen as outpt. Minimize NSAID use. - Will sign off, please reconsult as needed. Justus Ingram M.D. Justus Ingram MD 10/24/2020 1:21:31 PM This report has been signed electronically. Note Initiated On: 10/24/2020 12:56 PM Number of Addenda: 0 I attest to the content of the Intraoperative Record and orders documented therein, exceptions below {[id number]}
--- NOTE | 2020-10-24 13:32 | Anesthesiology Progress Note ---
Date of Service October 24, 2020 Anesthesia Post Procedure Vital Signs Vital Signs: Temp Pulse Pulse Resp BP BP BP 10/24/20 12:18 37 C 58 L 16 128/87 10/24/20 07:36 36.8 C 70 18 156/91 H 10/23/20 23:54 37.1 C 71 18 175/89 H 10/23/20 21:23 36.8 C 72 18 160/110 H 10/23/20 21:20 36.8 C 76 18 160/110 H 10/23/20 21:04 67 20 181/108 H 10/23/20 20:41 63 20 171/106 H 10/23/20 16:27 87 160/101 H 10/23/20 14:22 87 10/23/20 13:34 36.1 C L 61 20 177/100 H Pulse Ox 10/24/20 12:18 95 10/24/20 07:36 94 10/23/20 23:54 94 10/23/20 21:23 99 10/23/20 21:20 10/23/20 21:04 98 10/23/20 20:41 98 10/23/20 16:27 98 10/23/20 14:22 98 10/23/20 13:34 99 Transfer of Care Handoff Completed per policy Notes Mental Status: alert / awake / arousable Patient Amnestic to Procedure: Yes Nausea / Vomiting: adequately controlled Pain: adequately controlled Airway Patency, RR, SpO2: stable & adequate BP & HR: stable & adequate Hydration State: stable & adequate Anesthetic Complications: no major complications apparent
[2020-10-24 15:33] VITALS: TEMP 98.1; O2SAT 97
[2020-10-24 16:09] VITALS: BP 160/110; PULSE 74
== END 2020-10-24 16:35 | disposition home or self-care (01) ==
LOC: ED 13:33 → 3N 13:33